=== PATIENT | female | born 1980 | race Caucasian/White ===

== ENCOUNTER 2018-05-10 11:03 | Day surgery (SDC) | payer OTHER ==
[~2018-05-10 11:03] MED LIST: Buffered Lidocaine 1% SYRIN* 1 ML/SYRINGE INTRADERM ONE; Dexamethasone IV* 4 MG/ML 1 ML (4 MG) IV SLOW PU ONE; Famotidine IV* 10 MG/ML 2 ML (20 mg) IV ONE; Lactated Ringers 1000 ML Bag* 1,000 ML IV SCH
[2018-05-10] MEDS ORDERED: Dexamethasone IV* 4 MG/ML 1 ML (4 MG) ONE (12:59)
[2018-05-10] MEDS ORDERED: Famotidine IV* 10 MG/ML 2 ML (20 mg) ONE (12:59)
[2018-05-10] MEDS ORDERED: Midazolam* 1 MG/ML 2 ML VIAL (2 MG) ONE (13:20)
[2018-05-10] MEDS ORDERED: fentaNYL* 50 MCG/ML 2 ML VIAL (100 MCG VIAL) ONE (13:20)
[2018-05-10] MEDS ORDERED: Lidocaine 2% PF * 5 ML VIAL ONE (13:20)
[2018-05-10] MEDS ORDERED: Ketorolac INJ* 30 MG/ML 1 ML VIAL ONE (13:20)
[2018-05-10] MEDS ORDERED: Propofol* 10 MG/ML 20 ML BTL ONE (13:20)
[2018-05-10] MEDS ORDERED: Ondansetron INJ* 2 MG/ML VIAL ONE (13:20)
[2018-05-10] MEDS ORDERED: Naloxone* 0.4 MG/ML 1 ML VIAL IV PRN (13:36)
[2018-05-10] MEDS ORDERED: DiMENhydriNATE IV* 50 MG/ML VIAL IV PUSH PRN (13:36)
[2018-05-10] MEDS ORDERED: fentaNYL* 50 MCG/ML 2 ML VIAL (100 MCG VIAL) IV PRN (13:36)
[2018-05-10] MEDS ORDERED: Oxymetazoline 0.05% NASAL SPR* 15 ML BTL ONE (13:38)
[2018-05-10] MEDS ORDERED: Gelfoam 12-7 ADSORBABL SPONGE* 1 EA SPONGE ONE ×2 (13:40→14:16)
[2018-05-10] MEDS ORDERED: Lidocaine 2% EPI 1:200000 MPF*10-20 ML VIAL ONE (13:40)
[2018-05-10 15:45] VITALS: BP 123/90
--- NOTE | 2018-05-10 21:09 | OP ---
DATE OF OPERATION: 05/10/18 - SDS DATE OF : 80 SURGEON: Gael Dahl MD PRE-OP DIAGNOSES: 1. Deviated nasal septum. 2. Hypertrophy of turbinates. 3. Bilateral maxillary antrostomy. 4. Chronic sinusitis. POST-OP DIAGNOSES: 1. Deviated nasal septum. 2. Hypertrophy of turbinates. 3. Bilateral maxillary antrostomy. 4. Chronic sinusitis. OPERATIVE PROCEDURES: Septoplasty, submucosal resection of inferior turbinates and maxillary antrostomy, bilateral. BRIEF HISTORY: This is a 38-year-old female with a longstanding history of nasal dyspnea, also symptoms of chronic recurring sinusitis, facial pain, congestion, elected for surgical therapy. She had been previously diagnosed with similar problem, failing medical management, had been scheduled to undergo surgery, but moved to this area because of education. DESCRIPTION OF PROCEDURE: The patient was taken to the operating room, general anesthetic given, the patient was intubated with LMA. Nose was decongested with Afrin placed pledgets. 2% lidocaine with epinephrine was then infiltrated in the septum on both sides and the inferior turbinates on both sides and the uncinate region on both sides and the inferior turbinates and middle turbinates on both sides. Initially, we turned our attention to doing the maxillary antrostomy in this fashion - a 0-degree telescope, 30-degree telescope, and other microscopic instruments were utilized including the microshaver. We turned our attention initially to the left side, the uncinate process was peeled out and the antrostomy was enlarged and resecting some of the uncinate region and enlarging the antrum. Antral mucosa was copiously irrigated. Space between the middle turbinate and the lateral nasal wall was then packed with Gelfilm and Gelfoam, which were then infiltrated with Kenalog. We then turned our attention to the right side. The uncinate process was peeled out, microshaved away and the antrostomy enlarged. There was accessory ostium, which was communicated with the natural ostium, enlarging the antrum slightly. Again, packing was used and Gelfoam on the right side, which was soaked with Kenalog. We then turned our attention to the septum. There was a large septal spur posteriorly. A small incision was made in the septal mucosa and elevation was carried out and the septal spur was resected out. The mucosa was closed in a single layer. I did not feel there was any need for a splint. Submucosal resection of the turbinates was carried out using microshaver to reduce some of the inferior turbinate bone, subsequently cauterizing the area to enhance hemostasis. The nose was then dressed with a small drip dressing. The patient was awakened and sent to the recovery room in stable condition. Instrument and sponge counts were correct. Blood loss minimal. [id number]/[facility] #: [id number] [facility]ALSat[facility]
== END 2018-05-10 15:46 | disposition home or self-care (01) ==
LOC: OR 11:03
PROVIDERS: ATTEND Otolaryngology
DX: J34.2 Deviated nasal septum (principal); J34.3 Hypertrophy of nasal turbinates; Z68.31 Body mass index [BMI] 31.0-31.9, adult
CPT/HCPCS: A9270-GY; J1100; J1885; J2250; J2405; J2704; J3010

== ENCOUNTER 2019-04-23 08:09 | Emergency (ER) | payer OTHER ==
--- OUTSIDE RECORDS SUMMARY | 2019-04-23 08:13 | XMS REPORT | Continuity of Care Document ---
:1980 External Reference #:[id number] Author Name Gael Dahl MD Address [address] [place] [address] Care Team Providers Name Role Phone Nargis Godwin NP - Nurse Care Team Information Cattle Manager [phone] Practitioner Martha Ye MD - Family Medicine Care Team Information Cattle Manager Problems Active Problems Provider Date Chronic rhinitis Gael Dahl MD Onset: 03/15/2018 Hypertrophy of nasal turbinates Gael Dahl MD Onset: 03/15/2018 Chronic sinusitis Gael Dahl MD Onset: 03/15/2018 Deviated nasal septum Gael Dahl MD Onset: 03/22/2018 Bleeding from nose Gael Dahl MD Onset: 06/07/2018 Inflammatory disease of mucous membrane Gael Dahl MD Onset: 03/03/2019 Social History Type Date Description Comments Sex Unknown Tobacco Use Start: Unknown Never Smoked Cigarettes Tobacco Use Start: Unknown Never Smoked Cigars Tobacco Use Start: Unknown Never Smoked A Pipe Smokeless Tobacco Never Used Smokeless Tobacco ETOH Use Currently Consumes Alcohol Allergies, Adverse Reactions, Alerts Description No Known Drug Allergies Medications Active Medications SIG Qnty Indications Ordering Date Provider Mupirocin small amount to 66gm J34.89 Gael Dahl 01/24/2019 2% Ointment ffected area three MD times a day Singulair 1 by mouth every 90tabs Gael Dahl 08/10/2018 10mg day Tablets Azelastine HCL one puff both 30ml J31.0 Gael Dahl 03/05/2018 (Nasal) sides twice a day 0.1% Solution Budesonide 2 intranasal puffs 8.600gm J31.0 Gael Dahl 03/05/2018 32mcg/Act every day both MD Suspension sides Zyrtec Allergy 1 by mouth every Unknown 10mg day Tablets Singulair 1 by mouth every 60tabs Gael Dahl 10mg day MD Tablets Saline Nasal [place] 1 spray each Unknown nostril twice 0.65% Solution daily Immunizations Description No Information Available Vital Signs Date Vital Result Comment 03/03/2019 8:41am Weight 206.00 lb Weight 93.442 kg Height 66 inches 5'6" Height in cm's 167.6 cm BMI (Body Mass Index) 33.2 kg/m2 08/23/2018 9:56am Weight 206.00 lb Weight 93.442 kg Height 66 inches 5'6" Height in cm's 167.6 cm BMI (Body Mass Index) 33.2 kg/m2 Results Description No Information Available Procedures Description No Information Available Medical Devices Description No Information Available Encounters Type Date Location Provider Dx Diagnosis Office Visit 03/03/2019 Gael Ramos J34.81 Nasal mucositis 8:30a 02-16-2019 (ulcerative) Office Visit 01/24/2019 Jaden Palomino Ashu J34.89 Other specified 1:45p 02/16/07 disorders of nose and nasal sinuses J31.0 Chronic rhinitis Assessments Date Code Description Provider 03/03/2019 J34.81 Nasal mucositis (ulcerative) Gael Dahl MD 01/24/2019 J34.89 Other specified disorders of nose and nasal Gael Dahl MD sinuses 01/24/2019 J31.0 Chronic rhinitis Gael Dahl MD Plan of Treatment 03/03/2019 - Gael Dahl MDJ34.81 Nasal mucositis (ulcerative)Comments: Patient with nasal superficial ulcer not healing after surgery unfortunately also developed epistaxis requiring cauterization. I believe that the epithelium is not going to close over this and the patient may require a septal dermoplasty. Unfortunately she is busy in her work life presently and would return back in the summer to schedule for a septal dermoplasty. Functional Status Description No Information Available Mental Status Description No Information Available Referrals Description No Information Available
[2019-04-23 08:23] VITALS: BP 117/56
--- NOTE | 2019-04-23 09:59 | UC ---
Hand/Wrist HPI - HPI Summary HPI Summary: CHIEF COMPLAINT: left thumb injury HPI: This is a 39 year old, healthy female with no previous injury to her left hand, who comes to the [facility]] with the c/o left thumb discomfort primarily over the thenar eminance and the MCP joint. Mechanism was hyperextension approximately 12 hours ago while moving a sink. Description of Pain: mild, left thumb; worse with movement including opposition of thumb and 5th finger VITAL SIGNS REVIEWED. Within normal limits unless noted here. NURSES NOTE REVIEWED. " last night was lifting heavy sink, and injured left thumb/hand " - History Of Current Complaint Chief Complaint: UCUpperExtremity Stated Complaint: HAND INJURY Time Seen by Provider: 04/23/19 08:28 Hx Obtained From: Patient Hx Last Menstrual Period: 04/15 Pain Intensity: 2 - Allergies/Home Medications Allergies/Adverse Reactions: Allergies Allergy/AdvReac Type Severity Reaction Status Date / Time No Known Allergies Allergy Verified 04/23/19 08:23 Home Medications: Home Medications Cetirizine* [ZyrTEC 10 MG TAB*] 10 mg PO DAILY 04/30/18 [History Confirmed 04/22] Naproxen Sodium [Naproxen 220 mg] 2 tab PO ONCE PRN 04/23/19 [History Confirmed 04/23/19] PMH/Surg Hx/FS Hx/Imm Hx Previously Healthy: Yes - Surgical History Surgical History: Yes Surgery Procedure, Year, and Place: 2O12 RT ANKLE FRACTURE [place]. 1993 APPENDECTOMY [place]. septoplasty and turbinate reduction 2018 - Family History Known Family History: Positive: Diabetes - Social History Alcohol Use: Weekly Alcohol Amount: 2-3 DRINKS/WEEK Substance Use Type: None Smoking Status (MU): Never Smoked Tobacco Have You Smoked in the Last Year: No Review of Systems All Other Systems Reviewed And Are Negative: Yes Respiratory: Positive: Negative Cardiovascular: Positive: Negative Gastrointestinal: Positive: Negative Musculoskeletal: Positive: Decreased ROM - LEFT THUMB, Edema, Myalgia Is Patient Immunocompromised?: No Physical Exam - Summary Physical Exam Summary: Appearance: The patient is well-appearing, is in no pain or distress, and is well-nourished. Eyes: Conjunctiva are clear. Pupils are equal and reactive to light and accommodation. Extra ocular muscle movement is intact. ENT: The hearing is grossly normal, the pharynx is normal, and the TMs are normal. There is no muffled or hoarse voice. No stridor. Neck: The neck is supple and there is no lymphadenopathy. Respiratory: The chest is non-tender to palpation and without crepitus. The lungs are clear, there are normal breath sounds, and there is no respiratory distress. No wheezes, rales or rhonchi. Cardiovascular: Heart sounds reveal a regular rate and rhythm. There are no clicks, rubs or murmurs. There are no carotid bruits or thrills. Circulation is grossly intact. Abdomen: The abdomen is soft and nontender. There is no organomegaly. Bowel sounds are present and within normal limits. No point tenderness at McBurneys point. No CVA tenderness. Musculoskeletal: Strength is intact. The patient moves all extremities. LEFT THUMB: ecchymosis over thenar eminence; tender at MCP; restricted movement secondary to pain especially when attempts to touch 5th finger; ulnar collatoral ligament intact; full flexion and extension it IP. Sensory and circulation intact. Neurological: The patient is alert. Motor and sensory are examination grossly intact. Speech is normal. Psychological: The patient displays age appropriate behavior, and is conversant. GCS=15. Skin: Negative for rashes. X RAY: negative for fracture Triage Information Reviewed: Yes Vital Signs: Initial Vital Signs Temp 98.3 F 04/23/19 08:19 Pulse 67 04/23/19 08:19 Resp 16 04/23/19 08:19 BP 117/56 04/23/19 08:19 Pulse Ox 98 04/23/19 08:19 Hand/Wrist Course/Dx - Course Course Of Treatment: This is a 39 year old, healthy female with no previous injury to her left hand, who comes to the [facility]] with the c/o left thumb discomfort primarily over the thenar eminance and the MCP joint. Mechanism was hyperextension approximately 12 hours ago while moving a sink. X ray was negative for fracture. Dx. is hyperextension injury of the left thumb causing sprain and strain. Patient was put in a thumb spica splint and will restrict activity until she is pain free. She knows to follow up for continued pain in 2 weeks or any new, sustained or increasing disability. - Differential Dx/Diagnosis Differential Diagnosis/HQI/PQRI: Fracture, Sprain, Strain Provider Diagnosis: Left thumb sprain Discharge ED - Sign-Out/Discharge Documenting (check all that apply): Patient Departure All imaging exams completed and their final reports reviewed: Yes - Discharge Plan Condition: Stable Disposition: HOME Patient Education Materials: Finger Sprain (ED) Referrals: Nargis Godwin NP [Primary Care Provider] - Additional Instructions: WE DISCUSSED: PLEASE SEEK CARE AT THE EMERGENCY DEPARTMENT IF SYMPTOMS WORSEN OR IF NEW SYMPTOMS DEVELOP. FOLLOW UP WITH YOUR PRIMARY CARE PHYSICIAN IF CONDITION CONTINUES BEYOND 3 DAYS WITHOUT IMPROVEMENT. YOUR DIAGNOSIS IS: LEFT THUMB SPRAIN YOUR PRESCRIPTION RECOMMENDATION IS: NONE OTHER INSTRUCTIONS: USE THUMB SPICA SPLINT, ADVANCE ACTIVITY YOU BECOME MORE COMFORTABLE; WARM MOIST HEAT IN THE MORNING TO THE AREA; ALBERTO FOR SHARP PAIN AFTER USE. IF YOU HAVE CONTINUED PAIN OVER THE JOINT IN 2 WEEKS, CONSIDER OTHER STUDIES TO EVALUATE YOUR INJURY. NO FRACTURE WAS SEEN TODAY. FOR PAIN AND/OR SLEEP: For pain: Ibuprofen (Motrin and other brand names) 400-600mg PLUS acetaminophen (Tylenol and other brand names) 500mg - 1000mg every 8 hours. - Billing Disposition and Condition Condition: STABLE Disposition: Home
== END 2019-04-23 10:09 | disposition home or self-care (01) ==
LOC: UCEAST 08:09
DX: S63.682A Other sprain of left thumb, initial encounter (principal); S60.012A Contusion of left thumb without damage to nail, initial encounter; X58.XXXA Exposure to other specified factors, initial encounter; Y92.9 Unspecified place or not applicable
CPT/HCPCS: 99212; G0463